=== PATIENT | male | born 1970 | race Caucasian/White ===

== ENCOUNTER → 2016-10-29 | Outpatient (CLI) | payer MEDICARE, MEDICAID | LOC: RAD 08:37 | PROVIDERS: ATTEND Student in an Organized Health Care Education/Training Program | DX: K43.9 Ventral hernia without obstruction or gangrene (principal) | CPT/HCPCS: 82565; 74183; A9576 ==

== ENCOUNTER → 2016-12-03 | Outpatient (CLI) | payer MEDICARE, MEDICAID | LOC: OD 12:56 | PROVIDERS: ATTEND Student in an Organized Health Care Education/Training Program | DX: M54.5 Low back pain (principal); M54.2 Cervicalgia | CPT/HCPCS: 72050; 72070; 72110; 72220 ==

== ENCOUNTER → 2017-09-27 | Outpatient (CLI) | payer MEDICARE, MEDICAID ==
--- NOTE | 2017-09-27 16:45 | RADIOLOGY REPORT (SQ) ---
EXAM DESCRIPTION: U/S ABDOMEN COMPLETE W/O DOP COMPLETED DATE/TIME: 09/27/2017 9:48 am REASON FOR STUDY: HERNAI (K45.0) K45.0 OTH ABDOMINAL HERNIA WITH OBSTRUCTION, WITHOUT GANGREN COMPARISON: CT abdomen pelvis 08/04/2015 Abdominal ultrasound 04/13/2014, 11/08/2015 TECHNIQUE: Dynamic and static grayscale images acquired of the abdomen and recorded on PACS. Additio nal selected color Doppler and spectral images recorded. LIMITATIONS: Body habitus, midline bowel gas FINDINGS: In the right mid epigastrium, patient has a ventral hernia containing peristalsing bowel l oops. Hernia sac is best seen over the right lower quadrant infraumbilical region. At real-time sca nning, peristalsing bowel loops are present. PANCREAS: Midline pancreas unremarkable LIVER: No masses. Echotexture normal. LIVER VASCULATURE: Normal directional flow of the main portal vein and hepatic veins. GALLBLADDER: No stones. Normal wall thickness. No pericholecystic fluid. ULTRASOUND-DETECTED GUPTA'S SIGN: Negative. INTRAHEPATIC DUCTS AND COMMON DUCT: CBD and intrahepatic ducts normal caliber. No filling defects. D istal most common duct not well seen due to duodenum gas INFERIOR VENA CAVA: Normal flow. AORTA: No aneurysm. RIGHT KIDNEY: Normal size. Normal echogenicity. No solid or suspicious masses. No hydronephros is. No calcifications. LEFT KIDNEY: Normal size. Normal echogenicity. No solid or suspicious masses. Multiple cysts in the upper half left kidney, largest is 9 cm in diameter. No hydronephrosis. No calcifications. SPLEEN: Normal size. No solid masses. PERITONEAL AND PLEURAL SPACES: No ascites or effusions. OTHER: No other significant finding. IMPRESSION: Midepigastric and right lower quadrant ventral hernia containing peristalsing bowel loop s at ultrasound. Multiple cysts in the upper half of the left kidney, the largest is 9 cm in diameter. TECHNICAL DOCUMENTATION: JOB ID: [id number]- All Rights Reserved
== END ==
LOC: RAD 07:46
PROVIDERS: ATTEND Student in an Organized Health Care Education/Training Program
DX: K45.0 Other specified abdominal hernia with obstruction, without gangrene (principal)
CPT/HCPCS: 76700

== ENCOUNTER 2019-02-18 04:43 | Inpatient (IN) | payer MEDICARE, MEDICAID ==
--- NOTE | 2019-02-18 06:13 | RADIOLOGY REPORT (SQ) ---
EXAM DESCRIPTION: X-ray abdomen 1 view CLINICAL DATA: 48-year-old male with pain, evaluate for obstruction. TECHNICAL DATA: A single AP supine x-ray of the abdomen was performed on 02/18/2019 at 5:54 AM. Comparison: Prior abdomen x-ray performed on 08/04/2015. FINDINGS: The bowel gas pattern is nonspecific and nonobstructive. No pathologic abdominal or pelvic calcifications are identified. No abnormal air collections are identified. No focal soft tissue abnormalities are seen. No acute osseous abnormalities are identified. IMPRESSION: Nonspecific nonobstructive bowel gas pattern.
[2019-02-18 06:21] LABS: ABSOLUTE EOSINOPHILS # (AUTO) 0.2 10^3/uL (0.0-0.6); ABSOLUTE LYMPHOCYTES (AUTO) 1.3 10^3/uL (0.5-4.7); ABSOLUTE MONOCYTES (AUTO) 0.8 10^3/uL (0.1-1.4); ABSOLUTE NEUT (AUTO) 6.4 10^3/uL (1.7-8.2); BASOPHILS % (AUTO) 0.4 % (0-2); EOSINOPHILS % (AUTO) 1.8 % (0-6); HEMATOCRIT 40.3 % (37.9-51.0); HEMOGLOBIN 13.7 g/dL (13.5-17.0); LYMPHOCYTES % (AUTO) 14.9 % (13-45); MEAN CORPUSCULAR HEMOGLOBIN 33.6 pg (27.0-33.4); MEAN CORPUSCULAR HGB CONC 34.1 g/dL (32.0-36.0); MEAN CORPUSCULAR VOLUME 99 fl (80-97); MONOCYTES % (AUTO) 8.7 % (3-13); PLATELET COUNT 187 10^3/uL (150-450); RED BLOOD COUNT 4.09 10^6/uL (4.35-5.55); RED CELL DISTRIBUTION WIDTH 13.9 % (11.5-14.0); SEGMENTED NEUTROPHILS % (AUTO) 74.2 % (42-78); TOTAL CELLS COUNTED % (AUTO) 100 %; WHITE BLOOD COUNT 8.6 10^3/uL (4.0-10.5)
[2019-02-18 06:44] LABS: ALANINE AMINOTRANSFERASE 27 U/L (21-72); ALBUMIN 4.6 g/dL (3.5-5.0); ALKALINE PHOSPHATASE 91 U/L (38-126); ANION GAP 10 (5-19); ASPARTATE AMINO TRANSFERASE 33 U/L (17-59); BILIRUBIN,DIRECT 0.4 mg/dL (0.0-0.4); BILIRUBIN,TOTAL 0.8 mg/dL (0.2-1.3); BLOOD UREA NITROGEN 20 mg/dL (7-20); CALCIUM 9.8 mg/dL (8.4-10.2); CARBON DIOXIDE 26 mmol/L (22-30); CHLORIDE 103 mmol/L (98-107); GLUCOSE 128 mg/dL (75-110); LIPASE 66.8 U/L (23-300); POTASSIUM 4.1 mmol/L (3.6-5.0); SODIUM 139.1 mmol/L (137-145); TOTAL PROTEIN 8.1 g/dL (6.3-8.2)
[2019-02-18 06:52] LABS: APPEARANCE,URINE CLEAR; BILIRUBIN,URINE NEGATIVE (NEGATIVE); COLOR,URINE YELLOW; GLUCOSE, URINE NEGATIVE (NEGATIVE); KETONES,URINE TRACE mg/dL (NEGATIVE); LEUKOCYTE ESTERASE,URINE NEGATIVE (NEGATIVE); NITRITE,URINE NEGATIVE (NEGATIVE); PROTEIN,URINE NEGATIVE (NEGATIVE); URINE SPECIFIC GRAVITY 1.025; UROBILINOGEN,URINE NEGATIVE mg/dL (<2.0)
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
[2019-02-18] MEDS ORDERED: ONDANSETRON HCL INJ/PF 4 MG/2 ML SDV IV ONE (07:44)
--- NOTE | 2019-02-18 10:45 | RADIOLOGY REPORT (SQ) ---
EXAM DESCRIPTION: CT ABDOMEN WITH IV ORAL CONT COMPLETED DATE/TIME: 02/18/2019 10:27 am REASON FOR STUDY: VOMITING, ABD DISTENTION COMPARISON: 08/04/2015 TECHNIQUE: CT scan of the abdomen and pelvis performed with intravenous and oral contrast using estrada luiza scanning technique with dynamic intravenous contrast injection. Images reviewed with lung, soft t issue, and bone windows. Reconstructed coronal and sagittal MPR images reviewed. Delayed images for e valuation of the urinary system also acquired. All images stored on PACS. All CT scanners at this facility use dose modulation, iterative reconstruction, and/or weight based d osing when appropriate to reduce radiation dose to as low as reasonably achievable (ALARA). [facility]: Dose Right [facility]: CareDose [facility]: Dose Right [facility]: Teradose 4D [facility]: ChatterBlock CONTRAST TYPE AND DOSE: contrast/concentration: Isovue 350.00 mg/ml; Total Contrast Delivered: 100.0 ml; Total Saline Delivered: 72.0 ml RENAL FUNCTION: GFR > 60. RADIATION DOSE: CT Rad equipment meets quality standard of care and radiation dose reduction techniq ues were employed. CTDIvol: 21.0 - 21.1 mGy. DLP: 2326 mGy-cm. . LIMITATIONS: None. FINDINGS: LOWER CHEST: No significant findings. No nodules or infiltrates. LIVER: Fatty change. No focal lesions. SPLEEN: Normal size. No focal lesions. PANCREAS: No masses. No significant calcifications. No adjacent inflammation or peripancreatic fluid collections. Pancreatic duct not dilated. GALLBLADDER: No identified stones by CT criteria. No inflammatory changes to suggest cholecystitis. ADRENAL GLANDS: No significant masses or asymmetry. RIGHT KIDNEY AND URETER: No solid masses. No significant calcifications. No hydronephrosis or hyd roureter. LEFT KIDNEY AND URETER: Largely replaced by cysts. No solid mass. No significant calcifications. No hydronephrosis or hydroureter. AORTA AND VESSELS: No aneurysm. No dissection. Renal arteries, SMA, celiac without stenosis. RETROPERITONEUM: No retroperitoneal adenopathy, hemorrhage or masses. BOWEL AND PERITONEAL CAVITY: Dilated loops of small bowel associated with large anterior abdominal wa ll hernia. Colon is decompressed. No ascites or free air. APPENDIX: Normal. PELVIS: No significant masses. Normal bladder. No free fluid. ABDOMINAL WALL: See above BONES: No significant or acute findings. OTHER: No other significant finding. IMPRESSION: Partial small bowel obstruction associated with incarcerated large anterior abdominal wa ll hernia. TECHNICAL DOCUMENTATION: JOB ID: [id number] Quality ID # [id number]: Final reports with documentation of one or more dose reduction techniques (e.g., Au tomated exposure control, adjustment of the mA and/or kV according to patient size, use of iterative reconstruction technique) 2010 [employer]- All Rights Reserved Reading location - IP/workstation name: [email or web address]
[2019-02-18] MEDS ORDERED: FENTANYL CITRATE INJ/PF 100 MCG/2 ML AMPUL IV ONE ×2 (11:41→12:39)
[2019-02-18] MEDS ORDERED: LORAZEPAM INJ 2 MG/1 ML VIAL IV ONE (13:18)
--- NOTE | 2019-02-18 14:18 | PDOC H&P ---
History of Present Illness Admission Date/PCP: MAHAD BEDOYA DO History of Present Illness: REMBERTO COLÓN is a 48 year old male presenting to the emergency department with chief complaint of abdominal pain, abdominal distention and constipation. Patient reports he has not had a bowel movement in 2 weeks. He reports he has now been vomiting for the last 3 days. Patient reports at least 5-6 episodes of emesis each day. He denies any diarrhea or fever. He does report that he has a large hernia that at this time is not operable due to his obesity. he has seen [facility] surgeons who have asked him to loose wt prior to hernia repair currently he has min abd pain, but does have constipation and vomiting. Past Medical History Cardiac Medical History: Reports: Hyperlipidema, Hypertension Denies: Atrial Fibrillation, Congestive Heart Failure, Coronary Artery Disease, Myocardial Infarction, Peripheral Vascular Disease, Heart Murmur Pulmonary Medical History: Denies: Asthma Neurological Medical History: Reports: Seizures GI Medical History: Reports: Gastroesophageal Reflux Disease Denies: Crohn's Disease, Hiatal Hernia Musculoskeltal Medical History: Reports: Arthritis Denies: Fibromyalgia Psychiatric Medical History: Reports: Depression Denies: Bipolar Disorder, Dementia, Post Traumatic Stress Disorder Past Surgical History Past Surgical History: Denies: Colostomy, Pacemaker Social History Smoking Status: Never Smoker Frequency of Alcohol Use: None Hx Recreational Drug Use: No Drugs: None Hx Prescription Drug Abuse: No Family History Family History: Reviewed & Not Pertinent Parental Family History Reviewed: No Children Family History Reviewed: NA Sibling(s) Family History Reviewed.: NA Medication/Allergy Allergies/Adverse Reactions: Hymenoptera Allergenic Extract [From Yellow Jacket Venom Protein] Allergy (Verified 08/04/15 09:40) Yellow [place]et Riccardo Protein [From [place] Venom Protein] Allergy (Verified 08/04/15 09:40) Review of Systems Constitutional: PRESENT: weight gain Eyes: ABSENT: visual disturbances Ears: ABSENT: as per HPI, hearing changes, other Nose, Mouth, and Throat: ABSENT: as per HPI, headache(s), mouth pain, sore throat, vertigo, other Breasts: ABSENT: as per HPI, other Cardiovascular: ABSENT: as per HPI, chest pain, dyspnea on exertion, edema, orthropnea, palpitations, other Respiratory: ABSENT: as per HPI, cough, dyspnea, hemoptysis, sputum, other Gastrointestinal: PRESENT: bloating, heartburn, nausea, vomiting Genitourinary: ABSENT: as per HPI, difficulty urinating, dysuria, hematuria, nocturia, other Musculoskeletal: ABSENT: as per HPI, back pain, deformity, joint swelling, muscle weakness, other Integumentary: ABSENT: as per HPI, diaphoresis, erythema, lesions, pruritus, rash, wounds, other Neurological: ABSENT: as per HPI, abnormal gait, abnormal movements, abnormal speech, confusion, convulsions, dizziness, focal weakness, frequent falls, lack of coordination, memory loss, numbness, paresthesias, restless legs, syncope, tingling, tremor(s), vertigo, weakness, other Psychiatric: ABSENT: as per HPI, anxiety, depression, hallucinations, homidical ideation, suicidal ideation, other Endocrine: ABSENT: as per HPI, cold intolerance, flushing, heat intolerance, menstrual abnormalities, polydipsia, polyphagia, polyuria, other Hematologic/Lymphatic: ABSENT: as per HPI, easy bleeding, easy bruising, lym phadenopathy, other Allergic/Immunologic: ABSENT: as per HPI, seasonal rhinorrhea, other Physical Exam Vital Signs: Temp Pulse Resp BP Pulse Ox 98.7 F 92 16 159/77 H 96 02/18/19 10:41 02/18/19 10:41 02/18/19 10:41 02/18/19 10:41 02/18/19 10:41 Intake & Output 02/17/19 02/18/19 02/19/19 06:59 06:59 06:59 Weight 136.2 kg General appearance: PRESENT: mild distress Head exam: PRESENT: atraumatic, normocephalic Eye exam: PRESENT: EOMI Ear exam: PRESENT: normal external ear exam Mouth exam: PRESENT: moist Neck exam: PRESENT: full ROM Respiratory exam: PRESENT: clear to auscultation [place] Cardiovascular exam: PRESENT: RRR Pulses: PRESENT: normal radial pulses, normal femoral pulses GI/Abdominal exam: PRESENT: other - morbidly obese male, midlne scar from previous surgery massive ventral hernia with multiple facial defects below umbilicus iwth palp non reducible bowel noted non tender. Neurological exam: PRESENT: alert, awake, oriented to person Psychiatric exam: PRESENT: anxious Focused psych exam: PRESENT: other Skin exam: PRESENT: dry Results Laboratory Results: 02/18/19 06:10 02/18/19 06:10 02/18/19 02/18/19 02/18/19 06:10 06:10 06:33 WBC 8.6 RBC 4.09 L Hgb 13.7 Hct 40.3 MCV 99 H MCH 33.6 H MCHC 34.1 RDW 13.9 Plt Count 187 Seg Neutrophils % 74.2 Lymphocytes % 14.9 Monocytes % 8.7 Eosinophils % 1.8 Basophils % 0.4 Absolute Neutrophils 6.4 Absolute Lymphocytes 1.3 Absolute Monocytes 0.8 Absolute Eosinophils 0.2 Absolute Basophils 0.0 Sodium 139.1 Potassium 4.1 Chloride 103 Carbon Dioxide 26 Anion Gap 10 BUN 20 Creatinine 1.14 Est GFR ( Amer) > 60 Est GFR (Non-Af Amer) > 60 Glucose 128 H Calcium 9.8 Total Bilirubin 0.8 AST 33 ALT 27 Alkaline Phosphatase 91 Total Protein 8.1 Albumin 4.6 Lipase 66.8 Urine Color YELLOW Urine Appearance CLEAR Urine pH 5.0 Ur Specific [place] 1.025 Urine Protein NEGATIVE Urine Glucose (UA) NEGATIVE Urine Ketones TRACE H Urine Blood SMALL H Urine Nitrite NEGATIVE Ur Leukocyte Esterase NEGATIVE Urine WBC (Auto) 2 Urine RBC (Auto) 2 Impressions: KUB X-Ray 02/18/19 05:32 IMPRESSION: Nonspecific nonobstructive bowel gas pattern. Abdomen CT 02/18/19 07:37 IMPRESSION: Partial small bowel obstruction associated with incarcerated large anterior abdominal wall hernia. Assessment & Plan - Plan Summary Plan Summary: after review of ct scan, it appears the be an incomplete obstruction. will place ng tube for now and observe.
[2019-02-18] MEDS ORDERED: DEXTROSE 40% GEL 15 GM TUBE PO PRN ×2 (16:52)
[2019-02-18] MEDS ORDERED: GLUCAGON,HUMAN RECOMB 1 MG INJ SUBCUT PRN (16:52)
[2019-02-18] MEDS ORDERED: DEXTROSE 5%-LACTATED RINGERS 1,000 ML IV PRN (16:52)
[2019-02-18] MEDS ORDERED: DEXTROSE 50%-WATER 25 GM/50 ML DISP.SYRIN IV PRN ×2 (16:52)
[2019-02-18] MEDS ORDERED: DIAZEPAM INJ 10 MG/2 ML DISP.SYRIN IV PRN (16:57)
[2019-02-18] MEDS ORDERED: PHARMACY COMMUNICATION ORDER MC NR (17:00)
--- NOTE | 2019-02-18 18:51 | RADIOLOGY REPORT (SQ) ---
EXAM DESCRIPTION: KUB/ABDOMEN (SINGLE VIEW) COMPLETED DATE/TIME: 02/18/2019 5:38 pm REASON FOR STUDY: Check Placement of NG Tube COMPARISON: 02/18/2019 NUMBER OF VIEWS: One view. TECHNIQUE: Supine radiographic image of the abdomen acquired. LIMITATIONS: None. FINDINGS: BOWEL GAS PATTERN: Gas pattern remains nonspecific on this limited single view the abdomen . NG tube is been placed. Tip overlies the epigastric region. CALCIFICATIONS: No suspicious calcifications. SOFT TISSUES: No gross mass or suggestion of organomegaly. HARDWARE: None in the abdomen. BONES: No acute fracture. No worrisome bone lesions. OTHER: No other significant finding. IMPRESSION: NG tube is been placed. Exact position is difficult to determine. Recommend advancemen t and reimaging prior to use. TECHNICAL DOCUMENTATION: JOB ID: [id number] [employer]- All Rights Reserved Reading location - IP/workstation name: [email or web address]
[2019-02-18] MEDS: HEPARIN SOD (PORCINE) 5,000 UNIT/ML 1 ML VIAL SUBCUT SCH (21:52)
[2019-02-19] MEDS: HEPARIN SOD (PORCINE) 5,000 UNIT/ML 1 ML VIAL SUBCUT SCH ×3 (05:23→21:27)
[2019-02-19 05:27] LABS: ABSOLUTE EOSINOPHILS # (AUTO) 0.3 10^3/uL (0.0-0.6); ABSOLUTE LYMPHOCYTES (AUTO) 1.5 10^3/uL (0.5-4.7); ABSOLUTE MONOCYTES (AUTO) 1.1 10^3/uL (0.1-1.4); ABSOLUTE NEUT (AUTO) 5.9 10^3/uL (1.7-8.2); BASOPHILS % (AUTO) 0.4 % (0-2); HEMATOCRIT 38.5 % (37.9-51.0); HEMOGLOBIN 13.3 g/dL (13.5-17.0); LYMPHOCYTES % (AUTO) 17.1 % (13-45); MEAN CORPUSCULAR HEMOGLOBIN 33.9 pg (27.0-33.4); MEAN CORPUSCULAR HGB CONC 34.4 g/dL (32.0-36.0); MEAN CORPUSCULAR VOLUME 99 fl (80-97); MONOCYTES % (AUTO) 12.5 % (3-13); PLATELET COUNT 190 10^3/uL (150-450); RED BLOOD COUNT 3.91 10^6/uL (4.35-5.55); RED CELL DISTRIBUTION WIDTH 13.3 % (11.5-14.0); TOTAL CELLS COUNTED % (AUTO) 100 %; WHITE BLOOD COUNT 8.7 10^3/uL (4.0-10.5)
[2019-02-19 05:51] LABS: ANION GAP 8 (5-19); BLOOD UREA NITROGEN 13 mg/dL (7-20); CALCIUM 8.8 mg/dL (8.4-10.2); CARBON DIOXIDE 28 mmol/L (22-30); CHLORIDE 102 mmol/L (98-107); GLUCOSE 123 mg/dL (75-110); POTASSIUM 4.1 mmol/L (3.6-5.0); SODIUM 138.2 mmol/L (137-145)
--- NOTE | 2019-02-19 08:21 | PDOC PROGRESS REPORT ---
Subjective Progress Note for:: 02/19/19 Subjective:: Feels better after NG been placed as not had flatus or bowel movement Reason For Visit: SMALL BOWEL OBSTRUCTION/VENTRAL HERNIA Physical Exam Vital Signs: Temp Pulse Resp BP Pulse Ox 99 F 86 20 176/88 H 92 02/19/19 08:00 02/19/19 08:00 02/19/19 08:00 02/19/19 08:00 02/19/19 08:00 Intake & Output 02/18/19 02/19/19 02/20/19 06:59 06:59 06:59 Intake Total 0 Output Total 300 Balance -300 Weight 136.2 kg 136.4 kg General appearance: PRESENT: no acute distress Head exam: PRESENT: normocephalic Eye exam: PRESENT: EOMI Ear exam: PRESENT: normal external ear exam Mouth exam: PRESENT: moist Neck exam: PRESENT: full ROM Respiratory exam: PRESENT: clear to auscultation lamont Cardiovascular exam: PRESENT: RRR Pulses: PRESENT: normal radial pulses, normal femoral pulses GI/Abdominal exam: PRESENT: other - Abdomen is softly distended there are multiple anterior abdominal wall hernias that are nonreducible these have been noted by the patient to be chronic. No abdominal pain to deep palpation chronic incarcerated hernia is not reducible Rectal exam: PRESENT: deferred Extremities exam: PRESENT: full ROM Musculoskeletal exam: PRESENT: full ROM Neurological exam: PRESENT: alert, awake, oriented to person, oriented to place Psychiatric exam: PRESENT: flat affect Skin exam: PRESENT: dry Results Laboratory Results: 02/19/19 04:56 02/19/19 04:56 02/19/19 02/19/19 04:56 04:56 WBC 8.7 RBC 3.91 L Hgb 13.3 L Hct 38.5 MCV 99 H MCH 33.9 H MCHC 34.4 RDW 13.3 Plt Count 190 Seg Neutrophils % 67.0 Lymphocytes % 17.1 Monocytes % 12.5 Eosinophils % 3.0 Basophils % 0.4 Absolute Neutrophils 5.9 Absolute Lymphocytes 1.5 Absolute Monocytes 1.1 Absolute Eosinophils 0.3 Absolute Basophils 0.0 Sodium 138.2 Potassium 4.1 Chloride 102 Carbon Dioxide 28 Anion Gap 8 BUN 13 Creatinine 0.93 Est GFR ( Amer) > 60 Est GFR (Non-Af Amer) > 60 Glucose 123 H Calcium 8.8 Impressions: Abdomen CT 02/18/19 07:37 IMPRESSION: Partial small bowel obstruction associated with incarcerated large anterior abdominal wall hernia. KUB X-Ray 02/18/19 16:55 IMPRESSION: NG tube is been placed. Exact position is difficult to determine. Recommend advancement and reimaging prior to use. Assessment & Plan - Diagnosis (1) Incisional ventral hernia w obstruction Is this a current diagnosis for this admission?: Yes (2) Morbid obesity with BMI of 50.0-59.9, adult Is this a current diagnosis for this admission?: Yes - Time Time Spent with patient: 25-34 minutes - Plan Summary Plan Summary: Impression incarcerated ventral hernias morbidly obese patient Chronic constipation Plan we will continue with NG suction today. We will continue with soapsuds enemas Consider small bowel series in a.m.
[2019-02-19] MEDS ORDERED: DEXTROSE 5%-LACTATED RINGERS 1,000 ML IV PRN (11:41)
[2019-02-19] MEDS: DEXTROSE 5%-LACTATED RINGERS 1,000 ML IV PRN ×2 (12:24→19:34)
[2019-02-20] MEDS: ONDANSETRON HCL INJ/PF 4 MG/2 ML SDV IV PRN ×2 (01:58→17:37)
[2019-02-20] MEDS: DEXTROSE 5%-LACTATED RINGERS 1,000 ML IV PRN ×3 (03:03→15:19)
[2019-02-20] MEDS: HEPARIN SOD (PORCINE) 5,000 UNIT/ML 1 ML VIAL SUBCUT SCH ×3 (05:52→21:21)
--- NOTE | 2019-02-20 10:10 | PDOC PROGRESS REPORT ---
Subjective Progress Note for:: 02/20/19 Subjective:: Nasogastric tube reinserted this morning. Significant green drainage being evacuated, close to a liter just this a.m. Also having loose bowel movements. Reason For Visit: SMALL BOWEL OBSTRUCTION/VENTRAL HERNIA Physical Exam Vital Signs: Temp Pulse Resp BP Pulse Ox 100.2 F 100 22 H 160/90 H 93 02/20/19 07:51 02/20/19 07:51 02/20/19 07:51 02/20/19 07:51 02/20/19 07:51 Intake & Output 02/19/19 02/20/19 02/21/19 06:59 06:59 06:59 Intake Total 0 0 Output Total 300 1925 Balance -300 -1925 Weight 136.4 kg 136.4 kg General appearance: PRESENT: mild distress GI/Abdominal exam: PRESENT: other - Abdominal distention primarily due to incarcerated small bowel in midline hernia Results Laboratory Results: 02/19/19 04:56 02/19/19 04:56 Impressions: Abdomen CT 02/18/19 07:37 IMPRESSION: Partial small bowel obstruction associated with incarcerated large anterior abdominal wall hernia. Assessment & Plan - Diagnosis (1) Incarcerated hernia Is this a current diagnosis for this admission?: Yes Plan: Impression: Unresolved small bowel obstruction due to a midline ventral hernia and morbidly obese male Recommendations: 1. Contrast study to rule out obstruction. We will instill this to the nasogastric tube 2. Patient understands the plan agrees to proceed. 3. We are concerned patient may require a urgent exploration because of the impending bowel obstruction. He does not have peritonitis at this time.
--- NOTE | 2019-02-20 12:22 | RADIOLOGY REPORT (SQ) ---
EXAM DESCRIPTION: KUB/ABDOMEN (SINGLE VIEW) COMPLETED DATE/TIME: 02/20/2019 9:35 am REASON FOR STUDY: ng placement COMPARISON: 02/18/2019 NUMBER OF VIEWS: One view. TECHNIQUE: Supine radiographic image of the abdomen acquired. LIMITATIONS: None. FINDINGS: BOWEL GAS PATTERN: Nonspecific bowel gas pattern. CALCIFICATIONS: No suspicious calcifications. SOFT TISSUES: No gross mass or suggestion of organomegaly. HARDWARE: NG tube coiled in the GE junction. BONES: No acute fracture. No worrisome bone lesions. OTHER: No other significant finding. IMPRESSION: NG tube coiled in the GE junction. TECHNICAL DOCUMENTATION: JOB ID: [id number] [employer]- All Rights Reserved Reading location - IP/workstation name: [email or web address]
[2019-02-21] MEDS: HEPARIN SOD (PORCINE) 5,000 UNIT/ML 1 ML VIAL SUBCUT SCH ×3 (05:05→21:51)
--- NOTE | 2019-02-21 08:23 | RADIOLOGY REPORT (SQ) ---
EXAM DESCRIPTION: UPPER GI/SM BOWEL COMPLETED DATE/TIME: 02/20/2019 6:12 pm REASON FOR STUDY: r/o mechanical obstruction COMPARISON: None. TECHNIQUE: Under fluoroscopic guidance, Gastrografin was instilled through an indwelling NG tube. F luoroscopic spot images and routine radiographic images acquired and stored on PACS. Following evaluation of esophagus and stomach, additional barium administered with serial delayed abd ominal radiographs until colonic identification. Fluoroscopic images recorded of the terminal ileum. 12 MM BARIUM TABLET GIVEN: No FLUOROSCOPY TIME: 1.3 minutes 5 images saved to PACS. LIMITATIONS: None. FINDINGS: NEUROMUSCULAR COORDINATION OF SWALLOW: Not assessed ESOPHAGEAL MOTILITY: Not assessed. 12 MM TABLET TRANSIT TIME: Not assessed ESOPHAGEAL MUCOSA: Not assessed. GASTRO-ESOPHAGEAL JUNCTION: No hiatal hernia or reflux. STOMACH: Normal without masses or ulcerations. GASTRIC OUTLET: No delay in emptying. Normal pylorus. DUODENAL BULB: Normal distention. No spasm or ulceration. DUODENUM: Mucosa normal. Moderate dilatation. PROXIMAL SMALL BOWEL: Moderate dilatation. JEJUNUM: Limited images. Nondiagnostic. ILEUM: Limited images. Nondiagnostic. . TERMINAL ILEUM AND ILEO-CECAL VALVE: Limited images. Nondiagnostic. PROXIMAL COLON: Incompletely imaged. No abnormality. NON-GI TRACT STRUCTURES: No significant finding. OTHER: No other significant finding. IMPRESSION: LIMITED SMALL BOWEL FOLLOW-THROUGH. THE STUDY TERMINATED BY ATTENDING SURGEON. COMMENT: None Quality ID [id number]: Final reports for procedures using fluoroscopy that document radiation exposure prosper miki, or exposure time and number of fluorographic images (if radiation exposure indices are not avail able) TECHNICAL DOCUMENTATION: JOB ID: [id number] [employer]- All Rights Reserved Reading location - IP/workstation name: [email or web address] [id number]
--- NOTE | 2019-02-21 08:48 | PDOC PROGRESS REPORT ---
Subjective Progress Note for:: 02/21/19 Subjective:: Patient unable to tolerate the small bowel series yesterday due to vomiting as he had passed some small amount of flatus this morning Reason For Visit: SMALL BOWEL OBSTRUCTION/VENTRAL HERNIA Physical Exam Vital Signs: Temp Pulse Resp BP Pulse Ox 98.9 F 100 18 149/94 H 95 02/20/19 23:27 02/20/19 23:27 02/20/19 23:27 02/20/19 23:27 02/20/19 23:27 Intake & Output 02/20/19 02/21/19 02/22/19 06:59 06:59 06:59 Intake Total 0 0 Output Total 19240 Balance -1924 -3549 Weight 136.4 kg 135.2 kg General appearance: PRESENT: no acute distress Head exam: PRESENT: normocephalic Eye exam: PRESENT: EOMI Mouth exam: PRESENT: moist Neck exam: PRESENT: full ROM Respiratory exam: PRESENT: clear to auscultation lamont Cardiovascular exam: PRESENT: RRR Pulses: PRESENT: +2 pedal pulses bilateral GI/Abdominal exam: PRESENT: other - Abdomen is soft doughy there are multiple anterior abdominal wall hernias the most superior one is reducible mass palpated underneath the skin and is nontender Rectal exam: PRESENT: deferred Extremities exam: PRESENT: full ROM Musculoskeletal exam: PRESENT: full ROM Neurological exam: PRESENT: alert, awake, oriented to person, oriented to place Psychiatric exam: PRESENT: appropriate affect Skin exam: PRESENT: dry Results Laboratory Results: 02/19/19 04:56 02/19/19 04:56 Impressions: Abdomen CT 02/18/19 07:37 IMPRESSION: Partial small bowel obstruction associated with incarcerated large anterior abdominal wall hernia. KUB X-Ray 02/20/19 00:00 IMPRESSION: NG tube coiled in the GE junction. Upper GI and Small Bowel X-Ray 02/20/19 07:00 IMPRESSION: LIMITED SMALL BOWEL FOLLOW-THROUGH. THE STUDY TERMINATED BY ATTENDING SURGEON. Assessment & Plan - Diagnosis (1) Incisional ventral hernia w obstruction Is this a current diagnosis for this admission?: Yes (2) Morbid obesity with BMI of 50.0-59.9, adult Is this a current diagnosis for this admission?: Yes (3) Incarcerated hernia Is this a current diagnosis for this admission?: Yes - Plan Summary Plan Summary: Impression bowel obstruction secondary to partial incarceration of multiple anterior abdominal wall hernias Not seem that the small bowel obstruction is resolving nonoperatively Patient will need expiratory laparotomy with a sense of adhesions however due to his size he understands that we do not plan on repairing his abd wall due to his morbid obesity will plan on exploratroy laparotomy in am with lysis of adhesions and skin closure risks including bleeding, infection stroke, mi injry to adjacent structions, dehissence, wound infetion pneumonia, sepis and he understands and agrees to proceed.
[2019-02-21] MEDS: DEXTROSE 5%-LACTATED RINGERS 1,000 ML IV PRN ×2 (14:03→21:48)
[2019-02-21] MEDS: ONDANSETRON HCL INJ/PF 4 MG/2 ML SDV IV PRN (17:35)
[2019-02-22] MEDS: HEPARIN SOD (PORCINE) 5,000 UNIT/ML 1 ML VIAL SUBCUT SCH ×4 (05:24→21:17)
[2019-02-22] MEDS: DEXTROSE 5%-LACTATED RINGERS 1,000 ML IV PRN (05:24)
[2019-02-22] MEDS ORDERED: LIDOCAINE 2% INJ-PF (20 MG/ML) 2 ML AMPUL ONE (08:14)
[2019-02-22] MEDS ORDERED: SUCCINYLCHOLINE CHLORIDE INJ 200 MG/10 ML VIAL ONE (08:14)
[2019-02-22] MEDS ORDERED: ROCURONIUM BROMIDE INJ 50 MG/5 ML VIAL IV ONE (08:14)
[2019-02-22] MEDS ORDERED: DEXAMETHASONE SOD PHOSPHATE INJ 4 MG/1 ML VIAL ONE (08:14)
[2019-02-22] MEDS ORDERED: ONDANSETRON HCL INJ/PF 4 MG/2 ML SDV ONE (08:14)
--- NOTE | 2019-02-22 08:36 | RADIOLOGY REPORT (SQ) ---
EXAM DESCRIPTION: KUB/ABDOMEN (SINGLE VIEW) COMPLETED DATE/TIME: 02/22/2019 7:44 am REASON FOR STUDY: f/u sbo COMPARISON: 02/20/2019 NUMBER OF VIEWS: One view. TECHNIQUE: Supine radiographic image of the abdomen acquired. LIMITATIONS: None. FINDINGS: BOWEL GAS PATTERN: There are gas-filled, nondistended loops of small bowel in the mid abdo men. A large ventral hernia is not well appreciated radiographically. Colonic gas and enteric contr ast are present to the rectum. Esophagogastric tube remains folded over above the diaphragm. CALCIFICATIONS: No suspicious calcifications. SOFT TISSUES: No gross mass or suggestion of organomegaly. HARDWARE: None in the abdomen. BONES: No acute fracture. No worrisome bone lesions. OTHER: No other significant finding. IMPRESSION: There are gas-filled, nondistended loops of small bowel in the mid abdomen. A large porter tral hernia is not well appreciated radiographically. Colonic gas and enteric contrast are present t o the rectum. Esophagogastric tube remains folded over above the diaphragm, suspect malpositioning. TECHNICAL DOCUMENTATION: JOB ID: [id number] [employer]- All Rights Reserved Reading location - IP/workstation name: [email or web address]
[2019-02-22] MEDS ORDERED: MIDAZOLAM 2 MG/2 ML INJ ONE ×4 (11:06→13:28)
[2019-02-22] MEDS ORDERED: FENTANYL CITRATE INJ/PF 250 MCG/5 ML AMPULE ONE ×2 (11:06→13:03)
[2019-02-22] MEDS ORDERED: PROPOFOL INJ 200 MG/20 ML VIAL IV ONE ×2 (11:07→13:03)
[2019-02-22] MEDS ORDERED: BUPIVACAINE HCL 0.25% /EPINEPHRINE INJ/PF 30 ML SDV ONE (11:11)
[2019-02-22] MEDS ORDERED: OXYCODONE-ACETAMINOPHEN 5-325 MG TABLET PO PRN ×2 (11:24)
[2019-02-22] MEDS ORDERED: FENTANYL CITRATE INJ/PF 100 MCG/2 ML AMPUL IV PRN ×3 (11:24)
[2019-02-22] MEDS ORDERED: MEPERIDINE HCL/PF INJ 25 MG/1 ML DISP.SYRIN IV PRN (11:24)
[2019-02-22] MEDS ORDERED: MORPHINE SULFATE 10 MG/ML INJ IV PRN (11:24)
[2019-02-22] MEDS ORDERED: PROMETHAZINE HCL INJ 25 MG/1 ML VIAL IV PRN ×2 (11:24)
[2019-02-22] MEDS ORDERED: DIPHENHYDRAMINE HCL 50 MG/ML VIAL IV PRN (11:24)
[2019-02-22] MEDS ORDERED: CEFAZOLIN INJ 1 GM VIAL ONE (12:03)
[2019-02-22] MEDS ORDERED: METRONIDAZOLE 500 MG/NS RTU 500 MG/100 ML RTUPB IV ONE (12:03)
[2019-02-22] MEDS ORDERED: ALBUTEROL SULFATE HFA (90 MCG/PUFF) 200 PUFF/8.5 GM MDI IH ONE (12:56)
[2019-02-22] MEDS ORDERED: SUGAMMADEX SODIUM 200 MG/2 ML SDV IV ONE (13:27)
--- NOTE | 2019-02-22 13:40 | EKG REPORT ---
SEVERITY:- ABNORMAL ECG - SINUS RHYTHM LEFT ANTERIOR FASCICULAR BLOCK BORDERLINE PROLONGED QT INTERVAL : Confirmed by: Gonsalo Ji MD 22-Feb-2019 13:39:17
[2019-02-22] MEDS ORDERED: PROPOFOL 1,000 MG/100 ML INFUS..BTL IV ONE (14:58)
[2019-02-22] MEDS: MORPHINE SULFATE 10 MG/ML INJ IV PRN ×2 (15:00→20:03)
[2019-02-22] MEDS: PROPOFOL 1,000 MG/100 ML INFUS..BTL IV PRN ×3 (15:00→21:17)
--- NOTE | 2019-02-22 15:09 | Operative Report ---
Nonrecallable Operative Report DATE OF SURGERY: 02/22/19 PREOPERATIVE DIAGNOSIS: small bowel obstruction with ventral hernia POSTOPERATIVE DIAGNOSIS: small bowel obstruction with ventral hernia OPERATION: exploratory laparotomy,lysis of adhesions,ventral hernia repair SURGEON: LEILA JIMENEZ 1ST BATTERY HAND: RAYRAY MALDONADO ANESTHESIA: GA TISSUE REMOVED OR ALTERED: none COMPLICATIONS: none ESTIMATED BLOOD LOSS: 100cc INTRAOPERATIVE FINDINGS: large incarcerated ventral hernia x2
[2019-02-22] MEDS ORDERED: HYDRALAZINE HCL INJ/PF 20 MG/1 ML SDV IV PRN (15:27)
--- NOTE | 2019-02-22 15:54 | RADIOLOGY REPORT (SQ) ---
EXAM DESCRIPTION: CHEST SINGLE VIEW COMPLETED DATE/TIME: 02/22/2019 3:41 pm REASON FOR STUDY: post op COMPARISON: None. EXAM PARAMETERS: NUMBER OF VIEWS: One view. TECHNIQUE: Single frontal radiographic view of the chest acquired. RADIATION DOSE: NA LIMITATIONS: None. FINDINGS: LUNGS AND PLEURA: Minimal postop atelectasis left lower lung zone. No pneumothorax. MEDIASTINUM AND HILAR STRUCTURES: No masses. Contour normal. HEART AND VASCULAR STRUCTURES: Heart normal in size. Normal vasculature. BONES: No acute findings. HARDWARE: Endotracheal tube in proper position. 4 cm proximal to the georgina. Distal NG tube beneath the diaphragm. OTHER: No other significant finding. IMPRESSION: Satisfactory postop chest TECHNICAL DOCUMENTATION: JOB ID: [id number] [employer]- All Rights Reserved Reading location - IP/workstation name: [email or web address]
[2019-02-22 16:57] LABS: ARTERIAL BLOOD BASE EXCESS -0.4 mmol/L; ARTERIAL BLOOD H2CO3 1.37 mmol/L (1.05-1.35); ARTERIAL BLOOD HCO3 25.4 mmol/L (20-24); ARTERIAL BLOOD O2 SATURATION 96.9 % (94-98); ARTERIAL BLOOD PCO2 45.6 mmHg (35-45); ARTERIAL BLOOD PH 7.36 (7.35-7.45); ARTERIAL BLOOD PO2 93.9 mmHg (80-100); ARTERIAL BLOOD TOTAL CO2 26.8 mmol/L (23-27)
[2019-02-22 16:58] LABS: ARTERIAL BLOOD FIO2 60%
[2019-02-22] MEDS: METOPROLOL TARTRATE PF/INJ 5 MG/5 ML SDV IV SCH ×2 (17:32→23:16)
[2019-02-22] MEDS: RINGERS SOLUTION,LACTATED 1,000 ML IV PRN (21:19)
[2019-02-22] MEDS ORDERED: NORMAL SALINE 1000 ML 1,000 ML IV ONE (23:15)
[2019-02-23] MEDS: MORPHINE SULFATE 10 MG/ML INJ IV PRN ×2 (00:47→10:20)
[2019-02-23] MEDS: PROPOFOL 1,000 MG/100 ML INFUS..BTL IV PRN ×5 (02:39→10:13)
[2019-02-23] MEDS: RINGERS SOLUTION,LACTATED 1,000 ML IV PRN ×3 (02:56→17:11)
[2019-02-23] MEDS: HEPARIN SOD (PORCINE) 5,000 UNIT/ML 1 ML VIAL SUBCUT SCH ×3 (05:42→21:09)
[2019-02-23] MEDS: METOPROLOL TARTRATE PF/INJ 5 MG/5 ML SDV IV SCH ×3 (05:43→17:53)
--- NOTE | 2019-02-23 07:26 | PDOC PROGRESS REPORT ---
Subjective Progress Note for:: 02/23/19 Subjective:: intubated, on propofol Reason For Visit: SMALL BOWEL OBSTRUCTION/VENTRAL HERNIA Physical Exam Vital Signs: Temp Pulse Resp BP Pulse Ox 98.1 F 83 15 114/69 100 02/23/19 04:00 02/22/19 18:00 02/23/19 06:01 02/23/19 06:01 02/23/19 06:01 Intake & Output 02/22/19 02/23/19 02/24/19 06:59 06:59 06:59 Intake Total 0 2287 91 Output Total 1510 945 Balance -1510 1342 91 Weight 135.2 kg 140.2 kg General appearance: PRESENT: no acute distress Head exam: PRESENT: normocephalic Eye exam: PRESENT: EOMI Mouth exam: PRESENT: moist Respiratory exam: PRESENT: clear to auscultation lamont Cardiovascular exam: PRESENT: RRR Pulses: PRESENT: +2 pedal pulses bilateral Vascular exam: PRESENT: normal capillary refill GI/Abdominal exam: PRESENT: soft Rectal exam: PRESENT: deferred Gentrourinary exam: PRESENT: indwelling catheter Extremities exam: PRESENT: +1 edema Skin exam: PRESENT: dry Results Laboratory Results: 02/19/19 04:56 02/19/19 04:56 02/22/19 02/22/19 15:00 16:40 Carbonic Acid Cancelled 1.37 H HCO3/H2CO3 Ratio Cancelled 18:1 ABG pH Cancelled 7.36 ABG pCO2 Cancelled 45.6 H ABG pO2 Cancelled 93.9 ABG HCO3 Cancelled 25.4 H ABG O2 Saturation Cancelled 96.9 ABG Base Excess Cancelled -0.4 FiO2 Cancelled 60% Impressions: Abdomen CT 02/18/19 07:37 IMPRESSION: Partial small bowel obstruction associated with incarcerated large anterior abdominal wall hernia. Upper GI and Small Bowel X-Ray 02/20/19 07:00 IMPRESSION: LIMITED SMALL BOWEL FOLLOW-THROUGH. THE STUDY TERMINATED BY ATTENDING SURGEON. Chest X-Ray 02/22/19 00:00 IMPRESSION: Satisfactory postop chest KUB X-Ray 02/22/19 00:00 IMPRESSION: There are gas-filled, nondistended loops of small bowel in the mid abdomen. A large ventral hernia is not well appreciated radiographically. Colonic gas and enteric contrast are present to the rectum. Esophagogastric tube remains folded over above the diaphragm, suspect malpositioning. Assessment & Plan - Diagnosis (1) Incisional ventral hernia w obstruction Is this a current diagnosis for this admission?: Yes (2) Morbid obesity with BMI of 50.0-59.9, adult Is this a current diagnosis for this admission?: Yes (3) Incarcerated hernia Is this a current diagnosis for this admission?: Yes - Plan Summary Plan Summary: pod 1 s/p lysis of adhesions, ventral hernia repair vitals stable decreased urine op overnight labs pending, plan iv bolus check labs wheen to extubation
[2019-02-23] MEDS ORDERED: NORMAL SALINE 1000 ML 1,000 ML IV ONE (07:27)
[2019-02-23 08:33] LABS: ABSOLUTE NEUT (AUTO) 7.9 10^3/uL (1.7-8.2); BASOPHILS % (AUTO) 0.4 % (0-2); EOSINOPHILS % (AUTO) 0.1 % (0-6); HEMATOCRIT 32.9 % (37.9-51.0); HEMOGLOBIN 11.2 g/dL (13.5-17.0); LYMPHOCYTES % (AUTO) 9.9 % (13-45); MEAN CORPUSCULAR HEMOGLOBIN 34.2 pg (27.0-33.4); MEAN CORPUSCULAR VOLUME 101 fl (80-97); MONOCYTES % (AUTO) 10.3 % (3-13); PLATELET COUNT 174 10^3/uL (150-450); RED BLOOD COUNT 3.27 10^6/uL (4.35-5.55); RED CELL DISTRIBUTION WIDTH 13.6 % (11.5-14.0); SEGMENTED NEUTROPHILS % (AUTO) 79.3 % (42-78); TOTAL CELLS COUNTED % (AUTO) 100 %
[2019-02-23 08:46] LABS: ALANINE AMINOTRANSFERASE 24 U/L (21-72); ALBUMIN 2.8 g/dL (3.5-5.0); ALKALINE PHOSPHATASE 51 U/L (38-126); ANION GAP 7 (5-19); ASPARTATE AMINO TRANSFERASE 23 U/L (17-59); BILIRUBIN,DIRECT 0.5 mg/dL (0.0-0.4); BILIRUBIN,TOTAL 0.6 mg/dL (0.2-1.3); BLOOD UREA NITROGEN 13 mg/dL (7-20); CALCIUM 7.8 mg/dL (8.4-10.2); CARBON DIOXIDE 23 mmol/L (22-30); CHLORIDE 106 mmol/L (98-107); GLUCOSE 119 mg/dL (75-110); POTASSIUM 4.8 mmol/L (3.6-5.0); SODIUM 136.3 mmol/L (137-145); TOTAL PROTEIN 5.5 g/dL (6.3-8.2)
[2019-02-23 10:54] LABS: ARTERIAL BLOOD BASE EXCESS -3.4 mmol/L; ARTERIAL BLOOD FIO2 30%; ARTERIAL BLOOD H2CO3 1.18 mmol/L (1.05-1.35); ARTERIAL BLOOD HCO3 21.7 mmol/L (20-24); ARTERIAL BLOOD O2 SATURATION 95.6 % (94-98); ARTERIAL BLOOD PCO2 39.2 mmHg (35-45); ARTERIAL BLOOD PH 7.36 (7.35-7.45); ARTERIAL BLOOD PO2 80.7 mmHg (80-100); ARTERIAL BLOOD TOTAL CO2 22.9 mmol/L (23-27)
[2019-02-23] MEDS ORDERED: DEXAMETHASONE SOD PHOSPHATE INJ 4 MG/1 ML VIAL ONE (11:39)
--- NOTE | 2019-02-23 12:52 | OPERATIVE REPORT E ---
Operative Report NAME: REMBERTO COLÓN : 1970 AGE: 48Y DATE OF SURGERY: 02/22/2019 ROOM: 609 PREOPERATIVE DIAGNOSIS: SMALL BOWEL OBSTRUCTION SECONDARY TO INCARCERATED VENTRAL HERNIA. POSTOPERATIVE DIAGNOSIS: SMALL BOWEL OBSTRUCTION SECONDARY TO INCARCERATED VENTRAL HERNIA. OPERATION: Exploratory laparotomy with release of small bowel obstruction, ventral hernia repair. SURGEON: LEILA JIMENEZ M.D. APPEALS AND GENERALIST CLERK: SUNI Devine, who was present during the entire procedure for help with wound retraction and wound closure. PROCEDURE: The patient was brought to the operating room awake and alert, in stable condition, placed on the operating room table in supine position. Induced under general anesthesia, intubated. The abdomen was prepped and draped in the usual sterile manner for the procedure. After appropriate timeout and site verification a midline incision was used just below the xiphoid to just above the umbilicus. Dissection was carried down through subcutaneous tissue with Bovie cautery, it revealed hernia sacs. There were 2 large ones. The lower one was the larger one. We came through the subcutaneous tissue with Bovie and identified the sac. We lifted the sac and then opened it with Bovie cautery being careful not to injure the underlying bowel. Similarly the upper hernia defect was identified. Once we did this I was able to insinuate my hand between the sac and the abdominal fascia and noted that it was quite tight and had incarcerated loops of small bowel within in that were decompressed. We, therefore, opened the fascia distal to the hernia defect with Bovie cautery, then I was able to release the small bowel back into the abdominal cavity. Similarly the upper hernia had colon fixed within in and we mobilized the loose adhesions with Bovie cautery and sharp dissection and we were able to delivery the colon out of the upper hernia sac. We then connected the skin bridge between the 2 hernia sacs with Bovie cautery to open up the abdominal cavity. Once this was done he had a number of omental adhesions to the anterior abdominal wall, which required sharp dissection to take this down. Once this was all done we were able to completely free up the small bowel and colon. We lifted the colon anteriorly and ran the small bowel from the ligament of Treitz to the terminal ileum. There was no further evidence of serosal injury or areas of concern. The colon was also examined from the cecum all the way around the ascending colon, transverse colon, hepatic flexure, descending colon, and sigmoid and all appeared to be normal, although there was a large amount of stool within the descending colon and sigmoid. We were able to return the components back to the abdominal cavity. We then used the skin hooks to raise the skin flap laterally in order to get back to normal fascia. The hernia defect was fairly large, approximately 20 to 30 cm in diameter. Because of his morbid and the previous incarcerated small bowel, I felt that the patient would not do well with a mesh repair and, therefore, I elected to close the fascia primarily because it did not seem to have too much tension on it. Once we freed up the fascial edges and then excised the areas of attenuated fascia with Bovie cautery, closed the midline with a running double looped 0 PDS suture with interspersed #1 Vicryl sutures, approximately fifteen #1 Vicryl sutures were utilized the entire length of the procedure. Once this was completed we noted that the abdominal cavity was closed under minimal amount of tension and then irrigated the wound with normal saline, suctioned dry. We placed a Lee-Lo drain on the fascia but below the skin and brought it out through a stab wound in the right lower quadrant. We closed the skin incisions with standard skin clips, which completed the procedure. Estimated blood loss was less than 100 mL. Sponge and needle counts were correct x2. The patient was transferred to the intensive care unit, remaining intubated, in stable condition. DICTATING PHYSICIAN: LEILA JIMENEZ M.D. [id number] Y#: [id number] ID: [id number] JOB#: [id number] ACCT: [id number] cc:LEILA JIMENEZ M.D. >
[2019-02-24] MEDS: METOPROLOL TARTRATE PF/INJ 5 MG/5 ML SDV IV SCH ×5 (01:25→23:31)
[2019-02-24] MEDS: RINGERS SOLUTION,LACTATED 1,000 ML IV PRN ×4 (02:36→23:34)
[2019-02-24 04:58] LABS: ABSOLUTE LYMPHOCYTES (AUTO) 1.2 10^3/uL (0.5-4.7); BASOPHILS % (AUTO) 0.2 % (0-2); EOSINOPHILS % (AUTO) 0.1 % (0-6); HEMATOCRIT 34.6 % (37.9-51.0); HEMOGLOBIN 11.7 g/dL (13.5-17.0); LYMPHOCYTES % (AUTO) 11.3 % (13-45); MEAN CORPUSCULAR HEMOGLOBIN 33.7 pg (27.0-33.4); MEAN CORPUSCULAR VOLUME 99 fl (80-97); MONOCYTES % (AUTO) 10.2 % (3-13); PLATELET COUNT 187 10^3/uL (150-450); RED BLOOD COUNT 3.48 10^6/uL (4.35-5.55); RED CELL DISTRIBUTION WIDTH 13.6 % (11.5-14.0); SEGMENTED NEUTROPHILS % (AUTO) 78.2 % (42-78); TOTAL CELLS COUNTED % (AUTO) 100 %; WHITE BLOOD COUNT 10.2 10^3/uL (4.0-10.5)
[2019-02-24 05:26] LABS: ANION GAP 7 (5-19); BLOOD UREA NITROGEN 13 mg/dL (7-20); CALCIUM 8.4 mg/dL (8.4-10.2); CARBON DIOXIDE 29 mmol/L (22-30); CHLORIDE 104 mmol/L (98-107); GLUCOSE 110 mg/dL (75-110); PHOSPHORUS 2.6 mg/dL (2.5-4.5); POTASSIUM 3.9 mmol/L (3.6-5.0); SODIUM 139.5 mmol/L (137-145)
[2019-02-24] MEDS: HEPARIN SOD (PORCINE) 5,000 UNIT/ML 1 ML VIAL SUBCUT SCH ×3 (06:39→23:01)
[2019-02-24 06:41] LABS: ARTERIAL BLOOD BASE EXCESS 2.7 mmol/L; ARTERIAL BLOOD H2CO3 1.26 mmol/L (1.05-1.35); ARTERIAL BLOOD HCO3 27.3 mmol/L (20-24); ARTERIAL BLOOD PCO2 41.8 mmHg (35-45); ARTERIAL BLOOD PH 7.43 (7.35-7.45); ARTERIAL BLOOD PO2 105.6 mmHg (80-100); ARTERIAL BLOOD TOTAL CO2 28.6 mmol/L (23-27)
--- NOTE | 2019-02-24 09:06 | RADIOLOGY REPORT (SQ) ---
EXAM DESCRIPTION: CHEST SINGLE VIEW COMPLETED DATE/TIME: 02/24/2019 8:52 am REASON FOR STUDY: resp failure COMPARISON: 02/22/2019 EXAM PARAMETERS: NUMBER OF VIEWS: One view. TECHNIQUE: Single frontal radiographic view of the chest acquired. RADIATION DOSE: NA LIMITATIONS: None. FINDINGS: LUNGS AND PLEURA: No opacities, masses or pneumothorax. No pleural effusion. MEDIASTINUM AND HILAR STRUCTURES: No masses. Contour normal. HEART AND VASCULAR STRUCTURES: Cardiomegaly. BONES: No acute findings. HARDWARE: None in the chest. OTHER: Interval removal of endotracheal tube. Esophagogastric tube with tip and side-port below diap hragm. IMPRESSION: Interval removal of endotracheal tube. Stable AP portable examination with cardiomegaly . No new airspace opacity. TECHNICAL DOCUMENTATION: JOB ID: [id number] [employer]- All Rights Reserved Reading location - IP/workstation name: [email or web address]
--- NOTE | 2019-02-24 10:09 | PDOC PROGRESS REPORT ---
Subjective Progress Note for:: 02/24/19 Subjective:: pt feels better , less abd pain Reason For Visit: SMALL BOWEL OBSTRUCTION/VENTRAL HERNIA Physical Exam Vital Signs: Temp Pulse Resp BP Pulse Ox 98.0 F 92 18 165/87 H 98 02/24/19 08:00 02/24/19 08:00 02/24/19 08:00 02/24/19 08:00 02/24/19 08:00 Intake & Output 02/23/19 02/24/19 02/25/19 06:59 06:59 06:59 Intake Total 2287 3203 957 Output Total 945 9065 Balance 1342 708 957 Weight 140.2 kg 127.3 kg General appearance: PRESENT: no acute distress Eye exam: PRESENT: EOMI Mouth exam: PRESENT: moist Neck exam: PRESENT: full ROM Respiratory exam: PRESENT: clear to auscultation lamont Cardiovascular exam: PRESENT: RRR Pulses: PRESENT: +2 pedal pulses bilateral GI/Abdominal exam: PRESENT: soft Rectal exam: PRESENT: deferred Extremities exam: PRESENT: full ROM Musculoskeletal exam: PRESENT: full ROM Neurological exam: PRESENT: alert, awake, oriented to person, oriented to place Skin exam: PRESENT: dry Results Laboratory Results: 02/24/19 03:49 02/24/19 03:49 02/23/19 02/24/19 02/24/19 10:35 03:49 03:49 WBC 10.2 RBC 3.48 L Hgb 11.7 L Hct 34.6 L MCV 99 H MCH 33.7 H MCHC 34.0 RDW 13.6 Plt Count 187 Seg Neutrophils % 78.2 H Lymphocytes % 11.3 L Monocytes % 10.2 Eosinophils % 0.1 Basophils % 0.2 Absolute Neutrophils 8.0 Absolute Lymphocytes 1.2 Absolute Monocytes 1.0 Absolute Eosinophils 0.0 Absolute Basophils 0.0 Carbonic Acid 1.18 HCO3/H2CO3 Ratio 18:1 ABG pH 7.36 ABG pCO2 39.2 ABG pO2 80.7 ABG HCO3 21.7 ABG O2 Saturation 95.6 ABG Base Excess -3.4 FiO2 30% Sodium 139.5 Potassium 3.9 Chloride 104 Carbon Dioxide 29 Anion Gap 7 BUN 13 Creatinine 0.95 Est GFR ( Amer) > 60 Est GFR (Non-Af Amer) > 60 Glucose 110 Calcium 8.4 Phosphorus 2.6 Magnesium 2.0 02/24/19 06:20 WBC RBC Hgb Hct MCV MCH MCHC RDW Plt Count Seg Neutrophils % Lymphocytes % Monocytes % Eosinophils % Basophils % Absolute Neutrophils Absolute Lymphocytes Absolute Monocytes Absolute Eosinophils Absolute Basophils Carbonic Acid 1.26 HCO3/H2CO3 Ratio 21:1 ABG pH 7.43 ABG pCO2 41.8 ABG pO2 105.6 H ABG HCO3 27.3 H ABG O2 Saturation 98.0 ABG Base Excess 2.7 FiO2 34% Sodium Potassium Chloride Carbon Dioxide Anion Gap BUN Creatinine Est GFR ( Amer) Est GFR (Non-Af Amer) Glucose Calcium Phosphorus Magnesium Impressions: Abdomen CT 02/18/19 07:37 IMPRESSION: Partial small bowel obstruction associated with incarcerated large anterior abdominal wall hernia. Upper GI and Small Bowel X-Ray 02/20/19 07:00 IMPRESSION: LIMITED SMALL BOWEL FOLLOW-THROUGH. THE STUDY TERMINATED BY ATTENDING SURGEON. KUB X-Ray 02/22/19 00:00 IMPRESSION: There are gas-filled, nondistended loops of small bowel in the mid abdomen. A large ventral hernia is not well appreciated radiographically. Colonic gas and enteric contrast are present to the rectum. Esophagogastric tube remains folded over above the diaphragm, suspect malpositioning. Chest X-Ray 02/24/19 06:00 IMPRESSION: Interval removal of endotracheal tube. Stable AP portable examination with cardiomegaly. No new airspace opacity. Assessment & Plan - Diagnosis (1) Incisional ventral hernia w obstruction Is this a current diagnosis for this admission?: Yes (2) Morbid obesity with BMI of 50.0-59.9, adult Is this a current diagnosis for this admission?: Yes (3) Incarcerated hernia Is this a current diagnosis for this admission?: Yes (4) Partial small bowel obstruction Is this a current diagnosis for this admission?: Yes - Plan Summary Plan Summary: s/p repair of ventral hernia and lysis of adhesions doing better still awaiting bowel function return increase ambulation physical rx cont ng for now.
[2019-02-24] MEDS: MORPHINE SULFATE 10 MG/ML INJ IV PRN (23:00)
[2019-02-25] MEDS: RINGERS SOLUTION,LACTATED 1,000 ML IV PRN ×3 (05:54→18:51)
[2019-02-25] MEDS: HEPARIN SOD (PORCINE) 5,000 UNIT/ML 1 ML VIAL SUBCUT SCH ×3 (05:54→21:45)
[2019-02-25] MEDS: METOPROLOL TARTRATE PF/INJ 5 MG/5 ML SDV IV SCH ×4 (05:54→23:39)
--- NOTE | 2019-02-25 11:30 | PDOC PROGRESS REPORT ---
Subjective Progress Note for:: 02/25/19 Subjective:: feels ok passed small amts of flatus. Reason For Visit: SMALL BOWEL OBSTRUCTION/VENTRAL HERNIA Physical Exam Vital Signs: Temp Pulse Resp BP Pulse Ox 99.9 F 87 18 158/91 H 96 02/25/19 08:00 02/25/19 08:00 02/25/19 08:00 02/25/19 08:00 02/25/19 08:00 Intake & Output 02/24/19 02/25/19 02/26/19 06:59 06:59 06:59 Intake Total 3203 3864 Output Total 5925 3610 Balance 708 254 Weight 127.3 kg 125.5 kg General appearance: PRESENT: no acute distress Head exam: PRESENT: normocephalic Eye exam: PRESENT: EOMI Ear exam: PRESENT: TM's normal bilaterally Mouth exam: PRESENT: moist Neck exam: PRESENT: full ROM Respiratory exam: PRESENT: clear to auscultation lamont Cardiovascular exam: PRESENT: RRR GI/Abdominal exam: PRESENT: hypoactive bowel sounds, soft Rectal exam: PRESENT: deferred Extremities exam: PRESENT: full ROM Musculoskeletal exam: PRESENT: full ROM Neurological exam: PRESENT: alert, awake, oriented to person, oriented to place Psychiatric exam: PRESENT: appropriate affect Skin exam: PRESENT: dry Results Laboratory Results: 02/24/19 03:49 02/24/19 03:49 Impressions: Abdomen CT 02/18/19 07:37 IMPRESSION: Partial small bowel obstruction associated with incarcerated large anterior abdominal wall hernia. Upper GI and Small Bowel X-Ray 02/20/19 07:00 IMPRESSION: LIMITED SMALL BOWEL FOLLOW-THROUGH. THE STUDY TERMINATED BY ATTENDING SURGEON. KUB X-Ray 02/22/19 00:00 IMPRESSION: There are gas-filled, nondistended loops of small bowel in the mid abdomen. A large ventral hernia is not well appreciated radiographically. Colonic gas and enteric contrast are present to the rectum. Esophagogastric tube remains folded over above the diaphragm, suspect malpositioning. Chest X-Ray 02/24/19 06:00 IMPRESSION: Interval removal of endotracheal tube. Stable AP portable examination with cardiomegaly. No new airspace opacity. Assessment & Plan - Diagnosis (1) Incisional ventral hernia w obstruction Is this a current diagnosis for this admission?: Yes (2) Morbid obesity with BMI of 50.0-59.9, adult Is this a current diagnosis for this admission?: Yes (3) Incarcerated hernia Is this a current diagnosis for this admission?: Yes (4) Partial small bowel obstruction Is this a current diagnosis for this admission?: Yes - Plan Summary Plan Summary: s/p exploratory laparotomy with lysis of adhesions and ventral hernia repair. still only few bs will cont ng tube till return of bowel function.
[2019-02-26] MEDS: RINGERS SOLUTION,LACTATED 1,000 ML IV PRN ×3 (01:11→22:02)
[2019-02-26] MEDS: METOPROLOL TARTRATE PF/INJ 5 MG/5 ML SDV IV SCH ×4 (05:39→23:51)
[2019-02-26] MEDS: HEPARIN SOD (PORCINE) 5,000 UNIT/ML 1 ML VIAL SUBCUT SCH ×3 (05:40→22:02)
--- NOTE | 2019-02-26 07:38 | PDOC PROGRESS REPORT ---
Subjective Progress Note for:: 02/26/19 Subjective:: feels well passing stool Reason For Visit: SMALL BOWEL OBSTRUCTION/VENTRAL HERNIA Physical Exam Vital Signs: Temp Pulse Resp BP Pulse Ox 97.8 F 89 17 148/83 H 98 02/26/19 00:00 02/26/19 02:43 02/26/19 00:00 02/26/19 02:43 02/26/19 00:00 Intake & Output 02/25/19 02/26/19 02/27/19 06:59 06:59 06:59 Intake Total 3864 3135 Output Total 3610 1770 Balance 254 1365 Weight 125.5 kg 123.6 kg General appearance: PRESENT: no acute distress Head exam: PRESENT: normocephalic Eye exam: PRESENT: EOMI Ear exam: PRESENT: normal external ear exam Mouth exam: PRESENT: moist Neck exam: PRESENT: full ROM Respiratory exam: PRESENT: clear to auscultation lamont Cardiovascular exam: PRESENT: RRR Pulses: PRESENT: +2 pedal pulses bilateral GI/Abdominal exam: PRESENT: soft Rectal exam: PRESENT: deferred Extremities exam: PRESENT: full ROM Musculoskeletal exam: PRESENT: full ROM Neurological exam: PRESENT: alert, awake, oriented to person Psychiatric exam: PRESENT: appropriate affect Skin exam: PRESENT: dry Results Laboratory Results: 02/24/19 03:49 02/24/19 03:49 Impressions: Abdomen CT 02/18/19 07:37 IMPRESSION: Partial small bowel obstruction associated with incarcerated large anterior abdominal wall hernia. Upper GI and Small Bowel X-Ray 02/20/19 07:00 IMPRESSION: LIMITED SMALL BOWEL FOLLOW-THROUGH. THE STUDY TERMINATED BY ATTENDING SURGEON. KUB X-Ray 02/22/19 00:00 IMPRESSION: There are gas-filled, nondistended loops of small bowel in the mid abdomen. A large ventral hernia is not well appreciated radiographically. Colonic gas and enteric contrast are present to the rectum. Esophagogastric tube remains folded over above the diaphragm, suspect malpositioning. Chest X-Ray 02/24/19 06:00 IMPRESSION: Interval removal of endotracheal tube. Stable AP portable examinat ion with cardiomegaly. No new airspace opacity. Assessment & Plan - Diagnosis (1) Incisional ventral hernia w obstruction Is this a current diagnosis for this admission?: Yes (2) Morbid obesity with BMI of 50.0-59.9, adult Is this a current diagnosis for this admission?: Yes (3) Incarcerated hernia Is this a current diagnosis for this admission?: Yes (4) Partial small bowel obstruction Is this a current diagnosis for this admission?: Yes - Plan Summary Plan Summary: doing well now with return of bowel function will decrease ivf start diet remove [place].
[2019-02-27] MEDS: HEPARIN SOD (PORCINE) 5,000 UNIT/ML 1 ML VIAL SUBCUT SCH (05:18)
[2019-02-27] MEDS: METOPROLOL TARTRATE PF/INJ 5 MG/5 ML SDV IV SCH (05:18)
--- NOTE | 2019-02-27 07:46 | PDOC DISCHARGE SUMMARY ---
General - Admit/Disc Date/PCP Admission Date/Primary Care Provider: 02/18/19 14:38 MAHAD BEDOYA, Discharge Date: 02/27/19 - Discharge Diagnosis (1) Incisional ventral hernia w obstruction Is this a current diagnosis for this admission?: Yes (2) Morbid obesity with BMI of 50.0-59.9, adult Is this a current diagnosis for this admission?: Yes (3) Incarcerated hernia Is this a current diagnosis for this admission?: Yes (4) Partial small bowel obstruction Is this a current diagnosis for this admission?: Yes - Additional Information Resuscitation Status: Full Code Discharge Diet: As Tolerated Discharge Activity: No Lifting Over 10 Pounds History of Present Illness Patient complains of: No complaints History of Present Illness: REMBERTO COLÓN is a 48 year old male presenting to the emergency department with chief complaint of abdominal pain, abdominal distention and constipation. Patient reports he has not had a bowel movement in 2 weeks. He reports he has now been vomiting for the last 3 days. Patient reports at least 5-6 episodes of emesis each day. He denies any diarrhea or fever. He does report that he has a large hernia that at this time is not operable due to his obesity. he has seen [facility] surgeons who have asked him to loose wt prior to hernia repair currently he has min abd pain, but does have constipation and vomiting. Hospital Course Hospital Course: She was admitted on 18 February 2019 with a small bowel obstruction and incarcerated ventral hernia and was morbidly obese. He was admitted to the floor and NG tube was placed in medical management then ensued for his small bowel obstruction School he underwent a small bowel series which showed transit through the small bowel into the colon persistence of any incomplete small bowel obstruction secondary to incarcerated ventral hernia Taken to the operating room where he underwent an expiratory laparotomy with reduction of his incarcerated ventral hernia release of small bowel obstruction and ventral hernia repair post op he was managed in the icu,eventually extubated and transferred to reg nursing floor. he did well on the nursing, eventually started having bm's and was started on a progressive diet he continured to have nl bowel function and by the day of discharge, he is moni reg diet, having nl bms and ready for dc home today he has no c/o pain. he will be discharged home today, instructed to no lift more than 10bls for next 4-6 wks. he will f/u with me in a wk. Physical Exam Vital Signs: Temp Pulse Resp BP Pulse Ox 98.6 F 89 18 142/88 H 99 02/27/19 00:00 02/27/19 00:00 02/27/19 00:00 02/27/19 00:00 02/27/19 00:00 Intake & Output 02/26/19 02/27/19 02/28/19 06:59 06:59 06:59 Intake Total 3135 3670 Output Total 1770 2080 Balance 1365 1590 Weight 123.6 kg 123.6 kg General appearance: PRESENT: no acute distress Head exam: PRESENT: normocephalic Eye exam: PRESENT: EOMI Ear exam: PRESENT: normal external ear exam Mouth exam: PRESENT: moist Neck exam: PRESENT: full ROM Respiratory exam: PRESENT: clear to auscultation laomnt Cardiovascular exam: PRESENT: RRR Pulses: PRESENT: +2 pedal pulses bilateral GI/Abdominal exam: PRESENT: soft, other - wound clean dry. Rectal exam: PRESENT: deferred Extremities exam: PRESENT: +2 edema Musculoskeletal exam: PRESENT: full ROM Neurological exam: PRESENT: alert, awake Psychiatric exam: PRESENT: appropriate affect Skin exam: PRESENT: dry Results Laboratory Results: 02/24/19 03:49 02/24/19 03:49 Impressions: Abdomen CT 02/18/19 07:37 IMPRESSION: Partial small bowel obstruction associated with incarcerated large anterior abdominal wall hernia. Upper GI and Small Bowel X-Ray 02/20/19 07:00 IMPRESSION: LIMITED SMALL BOWEL FOLLOW-THROUGH. THE STUDY TERMINATED BY ATTENDING SURGEON. KUB X-Ray 02/22/19 00:00 IMPRESSION: There are gas-filled, nondistended loops of small bowel in the mid abdomen. A large ventral hernia is not well appreciated radiographically. Colonic gas and enteric contrast are present to the rectum. Esophagogastric tube remains folded over above the diaphragm, suspect malpositioning. Chest X-Ray 02/24/19 06:00 IMPRESSION: Interval removal of endotracheal tube. Stable AP portable examination with cardiomegaly. No new airspace opacity. Qualifiers - * PATIENT BEING DISCHARGED WITH ANY OF THE FOLLOWING DIAGNOSIS: No VTE patient discharged on overlapping Therapy?: No Reason(s) for not prescribing Overlap Therapy:: Not indicated Reason(s) for not prescribing Anti-thrombolytic therapy:: Not indicated Reason(s) for not prescribing Anti-coagulation therapy:: Not indicated Reason(s) for not prescribing Statins therapy:: Not indicated Reason(s) for not prescribing Aspirin therapy:: Not indicated Reason(s) for not prescribing Statin therapy:: Not indicated Reason(s) for not prescribing ACEI/ARBS:: Not indicated Acute Heart Failure - Is this a Heart Failure Patient?: No Plan Time Spent: Less than 30 Minutes - dc home today will f/u with me in a week.
[2019-02-27 08:17] VITALS: BP 165/80
--- NOTE | 2019-02-27 12:43 | PDOC CONSULTATION ---
Consultation Consult Date: 02/23/19 Attending physician:: LEILA JIMENEZ Provider Consulted: CASSIUS HARRIS Consult reason:: Postoperative respiratory failure History of Present Illness Admission Date/PCP: 02/18/19 14:38 MAHAD BEDOYA DO History of Present Illness: REMBERTO COLÓN is a 48 year old male in ICU intubated sedated status post surgery for incarcerated hernia had a bowel movement in several weeks and had frequent nausea and vomiting. He passed weaning protocol operatively and was subsequently sent here to the ICU. The surgery was successful in relieving his obstruction Past Medical History Cardiac Medical History: Reports: Hyperlipidema, Hypertension Denies: Atrial Fibrillation, Congestive Heart Failure, Coronary Artery Disease, Myocardial Infarction, Peripheral Vascular Disease, Heart Murmur Pulmonary Medical History: Denies: Asthma Neurological Medical History: Reports: Seizures Malignancy Medical History: Reports: None GI Medical History: Reports: Gastroesophageal Reflux Disease Denies: Crohn's Disease, Hiatal Hernia Musculoskeltal Medical History: Reports: Arthritis Denies: Fibromyalgia Psychiatric Medical History: Reports: Depression Denies: Bipolar Disorder, Dementia, Post Traumatic Stress Disorder Traumatic Medical History: Denies: Pneumothorax Hematology: Denies: Sickle Cell Disease, Bleeding Tendencies Infectious Medical History: Denies: HIV Past Surgical History Past Surgical History: Denies: Colostomy, Pacemaker Social History Information Source: [facility] Records Smoking Status: Never Smoker Frequency of Alcohol Use: None Hx Recreational Drug Use: No Drugs: None Hx Prescription Drug Abuse: No - Advance Directive Resuscitation Status: Full Code Family History Parental Family History Reviewed: No Children Family History Reviewed: No Sibling(s) Family History Reviewed.: No Medication/Allergy Allergies/Adverse Reactions: Hymenoptera Allergenic Extract [From [place] Venom Protein] Allergy (Verified 08/04/15 09:40) Yellow Jacket Riccardo Protein [From [place] Venom Protein] Allergy (Verified 08/04/15 09:40) Review of Systems ROS unobtainable: Due to endotracheal tube Physical Exam Vital Signs: Temp Pulse Resp BP Pulse Ox 98.1 F 83 15 114/69 100 02/23/19 04:00 02/22/19 18:00 02/23/19 06:01 02/23/19 06:01 02/23/19 08:00 Intake & Output 02/22/19 02/23/19 02/24/19 06:59 06:59 06:59 Intake Total 0 2287 163 Output Total 1510 945 Balance -1510 1342 163 Weight 135.2 kg 140.2 kg General appearance: PRESENT: no acute distress, disheveled, morbidly obese Head exam: PRESENT: atraumatic, normocephalic Eye exam: PRESENT: conjunctiva pale. ABSENT: nystagmus, periorbital swelling, scleral icterus Mouth exam: PRESENT: dry mucosa, neck supple, tongue midline, other - ET tube Neck exam: ABSENT: carotid bruit, full ROM, JVD, lymphadenopathy, meningismus, tenderness, thyromegaly, tracheal deviation, tracheostomy, other Respiratory exam: PRESENT: decreased breath sounds, prolonged expiratory phas, rhonchi, unlabored. ABSENT: retraction, stridor, tachypnea Cardiovascular exam: PRESENT: RRR, +S1, +S2 Pulses: PRESENT: normal radial pulses GI/Abdominal exam: PRESENT: other - Status post surgery Gentrourinary exam: PRESENT: indwelling catheter Extremities exam: PRESENT: pedal edema. ABSENT: calf tenderness, clubbing, joint swelling Musculoskeletal exam: ABSENT: ambulatory, deformity, dislocation Neurological exam: ABSENT: awake Skin exam: PRESENT: dry, warm Results Laboratory Results: 02/23/19 08:23 02/23/19 08:23 02/22/19 02/22/19 02/23/19 15:00 16:40 08:23 WBC 10.0 RBC 3.27 L Hgb 11.2 L Hct 32.9 L MCV 101 H MCH 34.2 H MCHC 34.0 RDW 13.6 Plt Count 174 Seg Neutrophils % 79.3 H Lymphocytes % 9.9 L Monocytes % 10.3 Eosinophils % 0.1 Basophils % 0.4 Absolute Neutrophils 7.9 Absolute Lymphocytes 1.0 Absolute Monocytes 1.0 Absolute Eosinophils 0.0 Absolute Basophils 0.0 Carbonic Acid Cancelled 1.37 H HCO3/H2CO3 Ratio Cancelled 18:1 ABG pH Cancelled 7.36 ABG pCO2 Cancelled 45.6 H ABG pO2 Cancelled 93.9 ABG HCO3 Cancelled 25.4 H ABG O2 Saturation Cancelled 96.9 ABG Base Excess Cancelled -0.4 FiO2 Cancelled 60% Sodium Potassium Chloride Carbon Dioxide Anion Gap BUN Creatinine Est GFR ( Amer) Est GFR (Non-Af Amer) Glucose Calcium Total Bilirubin AST ALT Alkaline Phosphatase Total Protein Albumin 02/23/19 08:23 WBC RBC Hgb Hct MCV MCH MCHC RDW Plt Count Seg Neutrophils % Lymphocytes % Monocytes % Eosinophils % Basophils % Absolute Neutrophils Absolute Lymphocytes Absolute Monocytes Absolute Eosinophils Absolute Basophils Carbonic Acid HCO3/H2CO3 Ratio ABG pH ABG pCO2 ABG pO2 ABG HCO3 ABG O2 Saturation ABG Base Excess FiO2 Sodium 136.3 L Potassium 4.8 Chloride 106 Carbon Dioxide 23 Anion Gap 7 BUN 13 Creatinine 1.36 H Est GFR ( Amer) > 60 Est GFR (Non-Af Amer) 56 L Glucose 119 H Calcium 7.8 L Total Bilirubin 0.6 AST 23 ALT 24 Alkaline Phosphatase 51 Total Protein 5.5 L Albumin 2.8 L Impressions: Abdomen CT 02/18/19 07:37 IMPRESSION: Partial small bowel obstruction associated with incarcerated large anterior abdominal wall hernia. Upper GI and Small Bowel X-Ray 02/20/19 07:00 IMPRESSION: LIMITED SMALL BOWEL FOLLOW-THROUGH. THE STUDY TERMINATED BY ATTENDING SURGEON. Chest X-Ray 02/22/19 00:00 IMPRESSION: Satisfactory postop chest KUB X-Ray 02/22/19 00:00 IMPRESSION: There are gas-filled, nondistended loops of small bowel in the mid abdomen. A large ventral hernia is not well appreciated radiographically. Colonic gas and enteric contrast are present to the rectum. Esophagogastric tube remains folded over above the diaphragm, suspect malpositioning. Assessment & Plan - Diagnosis (1) Incarcerated hernia Is this a current diagnosis for this admission?: Yes Plan: extubate (2) Partial small bowel obstruction Is this a current diagnosis for this admission?: Yes Plan: as per surgery (3) Morbid obesity with BMI of 50.0-59.9, adult Is this a current diagnosis for this admission?: Yes Plan: nutritional consult - Time Total Critical Time (Minutes): 60
== END 2019-02-27 13:54 | disposition home or self-care (01) | DRG 354 ==
LOC: ER 04:43 → EH 14:38 → UNDOADMIN 14:38 → EH 16:39 → 4S 16:39 → ICU 02-22 14:33 → 4N 02-23 20:06
PROVIDERS: ADMIT Surgery; ATTEND Surgery
PROC: 5A1935Z Respiratory Ventilation, Less than 24 Consecutive Hours (ICD-10-PCS; 2019-02-22)
PROC: 0WQF0ZZ Repair Abdominal Wall, Open Approach (ICD-10-PCS; principal; 2019-02-22 11:30)
DX: K43.6 Other and unspecified ventral hernia with obstruction, without gangrene (principal); Z68.43 Body mass index [BMI] 50.0-59.9, adult; Z91.048 Other nonmedicinal substance allergy status; E78.5 Hyperlipidemia, unspecified; I10 Essential (primary) hypertension; G40.909 Epilepsy, unspecified, not intractable, without status epilepticus; K21.9 Gastro-esophageal reflux disease without esophagitis; M19.90 Unspecified osteoarthritis, unspecified site; E66.01 Morbid (severe) obesity due to excess calories; K59.00 Constipation, unspecified
CPT/HCPCS: 00790; 36415; 36600; 71045; 74018; 74160; 74249; 80048; 80053; 81001; 82803; 83690; 83735; 84100; 85025; 93005; 93010; 94002; 94003; 94799; 96374; 96375; 96376; 99285; J0330; J0360; J0690; J1100; J1644; J2060; J2250; J2270; J2405; J2704; J3010; J3360; J3490; J7030; J7120; J7121

== ENCOUNTER → 2019-03-06 | Outpatient (CLI) | payer MEDICARE, MEDICAID ==
--- NOTE | 2019-03-06 11:15 | RADIOLOGY REPORT (SQ) ---
EXAM DESCRIPTION: CHEST PA/LATERAL COMPLETED DATE/TIME: 03/06/2019 9:23 am REASON FOR STUDY: SHORTNESS OF BREATH COMPARISON: None. EXAM PARAMETERS: NUMBER OF VIEWS: two views TECHNIQUE: Digital Frontal and Lateral radiographic views of the chest acquired. RADIATION DOSE: NA LIMITATIONS: none FINDINGS: LUNGS AND PLEURA: No opacities, masses or pneumothorax. No pleural effusion. MEDIASTINUM AND HILAR STRUCTURES: No masses or contour abnormalities. HEART AND VASCULAR STRUCTURES: Heart normal size. No evidence for failure. BONES: No acute findings. HARDWARE: None in the chest. OTHER: No other significant finding. IMPRESSION: NO SIGNIFICANT RADIOGRAPHIC FINDING IN THE CHEST. TECHNICAL DOCUMENTATION: JOB ID: [id number] [employer]- All Rights Reserved Reading location - IP/workstation name: [email or web address]
== END ==
LOC: OD 09:09
PROVIDERS: ATTEND Surgery
DX: R06.02 Shortness of breath (principal); Z98.890 Other specified postprocedural states
CPT/HCPCS: 71046